=== PATIENT | male | born 1975 | race Caucasian/White ===

== ENCOUNTER 2018-11-11 23:38 | Emergency (ER) | payer BC ==
[~2018-11-11] VITALS: Ht 177.8 cm; Wt 131.8 kg
[~2018-11-11 23:38] MED LIST: LORTAB 5/500 501 TAB PO; NO HOME MEDICATIONS
[2018-11-11 23:41] VITALS: BP 142/74; TEMP 97.6
[2018-11-12 01:20] LABS: BASO # 0.1 (0.0-0.2); BASO % 0.6 % (0.0-2.0); EOS # 0.2 (0.0-0.7); EOS % 1.8 % (0-4.0); GRAN # 9.8 (1.4-6.5); GRAN % 73.9 % (42.2-75.2); HEMATOCRIT 43.8 % (42.0-52.0); HEMOGLOBIN 15.1 g/dl (13.5-18.0); LYMPH # 1.9 (1.2-3.4); LYMPH % 14.4 % (20.0-51.0); MEAN CELL VOLUME 92 fl (80.0-100.0); MEAN CORPUSCULAR HEMOGLOBIN 32 pg (27.0-31.0); MEAN CORPUSCULAR HGB CONC 35 g/dl (33.0-37.0); MEAN PLATELET VOLUME 9.7 fl (7.4-10.4); MONO # 1.2 (0.1-0.6); MONO % 8.8 % (1.7-9.3); PLATELET COUNT 277 K/mm3 (130-400); RED BLOOD COUNT 4.75 M/mm3 (4.20-5.60); REDCELL DISTRIBUTION WIDTH-CV 12.5 % (11.5-14.5)
[2018-11-12 01:28] LABS: PROTHROMBIN TIME 11.8 SECONDS (9.7-12.8)
[2018-11-12 01:36] LABS: ALANINE AMINOTRANSFERASE 28 U/L (21-72); ALBUMIN 4.4 gm/dL (3.5-5.0); ALKALINE PHOSPHATASE 75 U/L (50-136); ANION GAP 9 mmol/L (7-16); AST,SGOT 26 U/L (15-37); BILIRUBIN,TOTAL 0.3 mg/dL (0.0-1.0); BLOOD UREA NITROGEN 17 mg/dL (9-20); CALCIUM 9.8 mg/dL (8.4-10.2); CARBON DIOXIDE 29 mmol/L (22-30); CHLORIDE 102 mmol/L (98-107); CREATININE, serum 0.97 mg/dL (0.66-1.25); GLUCOSE 146 mg/dL (74-106); POTASSIUM 4.1 mmol/L (3.4-5.0); SODIUM 139 mmol/L (137-145); TOTAL PROTEIN 7.5 gm/dL (6.4-8.2)
[2018-11-12] MEDS ORDERED: ANTIVERT 25MG25 MG PO (01:38)
[2018-11-12 02:01] LABS: TROPONIN-I < 0.012 ng/mL (0.000-0.034)
[2018-11-12 02:16] VITALS: PULSE 75
== END 2018-11-12 02:16 | disposition home or self-care (01) ==
LOC: COL.ER 23:38
PROVIDERS: Physician Assistant
DX: H81.10 Benign paroxysmal vertigo, unspecified ear (principal); I10 Essential (primary) hypertension; J45.909 Unspecified asthma, uncomplicated

== ENCOUNTER 2021-11-01 11:02 | Day surgery (SDC) | payer BC ==
[~2021-11-01] VITALS: Ht 177.8 cm; Wt 134.2 kg
[~2021-11-01 11:02] MED LIST changes: +ANTIVERT 25MG25 MG PO
[2021-11-01 11:28] VITALS: BP 149/74; PULSE 82; TEMP 98.1
[2021-11-01] MEDS ORDERED: ASMANEX HF200 MCG/Ac IH (11:34)
[2021-11-01] MEDS ORDERED: PROVENTIL0.09 MG/A1 IH (11:34)
[2021-11-01] MEDS ORDERED: TOPROL XL100 MG PO (11:35)
[2021-11-01] MEDS ORDERED: HYZAAR 25 MG-101 TAB PO (11:35)
[2021-11-01] MEDS ORDERED: SINGULAIR 110 MG/TAB PO (11:36)
[2021-11-01] MEDS ORDERED: AMOXICILLIN 8751 TAB PO (11:36)
[2021-11-01] MEDS ORDERED: ALLEGRA ALLERG180 MG PO (11:37)
[2021-11-01] MEDS ORDERED: PYRIDIUM 100MG100 MG PO (13:54)
[2021-11-01] MEDS ORDERED: NORCO 325 MG-51 TAB PO (13:55)
[2021-11-01 14:30] VITALS: BP 134/75; PULSE 64; TEMP 97.7
--- NOTE | 2021-11-01 14:30 | NUR ---
The patient arrived back to [facility] via cart from the recovery room at this time. The patient appears alert and oriented and denies any pain or nausea at this time. Post operative vital signs were started at this time. The patient agrees to try some toast and a water at this time. The patient's is at his bedside at this time. The patient has a catheter in place which is secured to his leg and and draining yellow, clear urine. Call light is within reach. Will continue to monitor the patient.
[2021-11-01 14:45] VITALS: BP 130/73; PULSE 55
--- NOTE | 2021-11-01 14:45 | NUR ---
The patient appears to be tolerating the food and drink well. The patient reqeusts a leg bag to wear home. He states he "remembers from last time" how to apply the leg bag. The nurse encouraged the patient to notify the staff if he has any questions/concerns while switching his catheter over.
[2021-11-01 15:00] VITALS: BP 112/79; PULSE 49
--- NOTE | 2021-11-01 15:00 | NUR ---
The patient has fininshed his food and drink and appeared to tolerate both well. He voices a desire to be discharged home. The patient's IV to his left hand was removed and a pressure dressing was applied to the site. The nurse instructed the patient to get dressed and notify the staff when he is ready to review his discharge paperwork.
--- NOTE | 2021-11-01 15:10 | NUR ---
Discharge instructions were reviewed with the patient and his at this time. They both verbalized understanding and have no questions for the nurse at this time. The patient's is present to drive him home. The patient's IV to his left was removed and a pressure dressing was applied to the site.
--- NOTE | 2021-11-01 15:19 | NUR ---
The patient was escorted out via wheelchair to a private vehicle by [facility]. The patient's belongings and discharge paperwork were sent with him. The patient's is present to drive him home
== END 2021-11-01 15:19 | disposition home or self-care (01) ==
LOC: SDCO 11:02
DX: N35.919 Unspecified urethral stricture, male, unspecified site (principal); I10 Essential (primary) hypertension; R53.0 Neoplastic (malignant) related fatigue; R39.15 Urgency of urination; R39.12 Poor urinary stream; J45.909 Unspecified asthma, uncomplicated; E88.81 Metabolic syndrome and other insulin resistance; E66.9 Obesity, unspecified; F17.210 Nicotine dependence, cigarettes, uncomplicated; Z79.899 Other long term (current) drug therapy; Z90.49 Acquired absence of other specified parts of digestive tract; Z98.52 Vasectomy status
CPT/HCPCS: C1769; C1894; J0690; J1100; J2405; J2704; J3010; J3301; J7120